=== PATIENT | male | born 1950 | race Hispanic/Latino ===

== ENCOUNTER → 2019-03-10 | Outpatient (CLI) | payer MEDICARE ==
[2019-03-10 14:33] LABS: BASOPHILS % (AUTO) 0.3 % (0.0-5.0); EOSINOPHILS % (AUTO) 4.4 % (0.0-8.0); HEMATOCRIT 39.9 % (42-54); LYMPHOCYTES % (AUTO) 44.5 % (21.0-51.0); MEAN CORPUSCULAR HEMOGLOBIN 32.8 pg (27.0-33.0); MEAN CORPUSCULAR HGB CONC 35.3 g/dL (32.0-36.0); MEAN CORPUSCULAR VOLUME 92.9 fL (79-99); MONOCYTES % (AUTO) 8.5 % (3.0-13.0); NEUTROPHILS % (AUTO) 42.3 % (40.0-77.0); NUCLEATED RED BLOOD CELLS 0.1 % (0.0-0.19); PLATELET COUNT (AUTO) 212 K/uL (130-400); RED BLOOD CELL COUNT(AUTO) 4.29 MIL/uL (4.50-6.20); RED CELL DISTRIBUTION WIDTH 12.9 % (11.0-15.5); WHITE BLOOD COUNT (AUTO) 7.7 K/uL (4.8-10.8)
[2019-03-10 14:46] LABS: CREATININE 1.1 mg/dL (0.5-1.5); POTASSIUM 4.7 mmol/L (3.5-5.1)
== END | disposition home or self-care (01) ==
LOC: LAB 12:50
PROVIDERS: ATTEND Urology
DX: R31.29 Other microscopic hematuria (principal)
CPT/HCPCS: 36415; 80048; 85025

== ENCOUNTER → 2019-03-19 | Outpatient (CLI) | payer MEDICARE ==
[~2019-03-19] MED LIST: IOHEXOL-350 75 ML VIAL IV ONE
== END | disposition home or self-care (01) ==
LOC: RAH 07:17
PROVIDERS: ATTEND Urology
DX: N21.0 Calculus in bladder (principal); N40.0 Benign prostatic hyperplasia without lower urinary tract symptoms
CPT/HCPCS: 74178; Q9967

== ENCOUNTER → 2019-04-08 | Outpatient (CLI) | payer MEDICARE | END | disposition home or self-care (01) | LOC: RAH 13:37 | PROVIDERS: ATTEND Orthopaedic Surgery | DX: M17.11 Unilateral primary osteoarthritis, right knee (principal); M25.461 Effusion, right knee | CPT/HCPCS: 73721 ==

== ENCOUNTER → 2019-05-05 | Outpatient (CLI) | payer MEDICARE | END | disposition home or self-care (01) | LOC: OIH 09:04 | PROVIDERS: ATTEND Internal Medicine | DX: M41.84 Other forms of scoliosis, thoracic region (principal); M51.34 Other intervertebral disc degeneration, thoracic region; M25.78 Osteophyte, vertebrae; M41.86 Other forms of scoliosis, lumbar region; M51.36 Other intervertebral disc degeneration, lumbar region; M50.30 Other cervical disc degeneration, unspecified cervical region | CPT/HCPCS: 72040; 72070; 72100 ==

== ENCOUNTER → 2021-05-17 | Outpatient (CLI) | payer OTHER, MEDICARE | END | disposition home or self-care (01) | LOC: RAH 12:33 | PROVIDERS: ATTEND Nurse Practitioner | DX: S83.207A Unspecified tear of unspecified meniscus, current injury, left knee, initial encounter (principal); M17.12 Unilateral primary osteoarthritis, left knee; X58.XXXA Exposure to other specified factors, initial encounter; Y93.89 Activity, other specified; Y92.89 Other specified places as the place of occurrence of the external cause; Y99.8 Other external cause status | CPT/HCPCS: 73721 ==

== ENCOUNTER 2021-08-24 07:41 | Day surgery (SDC) | payer OTHER, MEDICARE ==
[2021-08-22 10:11] LABS: CREATININE 1.2 mg/dL (0.5-1.5); POTASSIUM 4.3 mmol/L (3.5-5.1)
[2021-08-22 10:14] LABS: BASOPHILS % (AUTO) 0.5 % (0.0-5.0); EOSINOPHILS % (AUTO) 7.5 % (0.0-8.0); HEMATOCRIT 36.6 % (42-54); LYMPHOCYTES % (AUTO) 28.8 % (21.0-51.0); MEAN CORPUSCULAR HEMOGLOBIN 31.2 pg (27.0-33.0); MEAN CORPUSCULAR VOLUME 89.3 fL (79-99); MONOCYTES % (AUTO) 9.2 % (3.0-13.0); NEUTROPHILS % (AUTO) 53.5 % (40.0-77.0); PLATELET COUNT (AUTO) 248 K/uL (130-400); RED CELL DISTRIBUTION WIDTH 13.4 % (11.0-15.5); WHITE BLOOD COUNT (AUTO) 6.4 K/uL (4.8-10.8)
[2021-08-23 12:48] VITALS: BP 96/53
[~2021-08-24] VITALS: Ht 165.1 cm; Wt 83.5 kg
[2021-08-24] VITALS (16 sets, daily range): BP systolic 109–154; BP diastolic 60–78
[~2021-08-24 07:41] MED LIST changes: +CEFAZOLIN SODIUM 2 GM VIAL IV SCH; +DOXA8TAB81 PO; -IOHEXOL-350 75 ML VIAL IV ONE; +LISI40TA9 PO; +MIRA50TA PO; +SITA1TAB6 PO
[2021-08-24] MEDS ORDERED: 0.9%NACL 1000ML 1,000 ML IV ONE (08:48)
[2021-08-24] MEDS ORDERED: CEFAZOLIN SODIUM 1 GM VIAL ONE (08:48)
[2021-08-24] MEDS ORDERED: LIDOCAINE PF 100MG/5ML (2%) SYRINGE 5ML ONE (13:34)
[2021-08-24] MEDS ORDERED: ROCURONIUM 10MG/1ML SYR 10 MG/ML ML ONE (13:35)
[2021-08-24] MEDS ORDERED: ONDANSETRON 4MG INJ ONE (13:35)
[2021-08-24] MEDS ORDERED: MIDAZOLAM HCL 1 MG/ML 2ML VIAL ONE (13:35)
[2021-08-24] MEDS ORDERED: PROPOFOL 10 MG/ML 20ML VIAL IV ONE (13:35)
[2021-08-24] MEDS ORDERED: EPHEDRINE SULFATE 50 MG/ML AMPULE ONE (13:50)
[2021-08-24] MEDS ORDERED: FENTANYL CITRATE PF 50 MCG/1 ML 2ML VIAL ONE (13:53)
[2021-08-24] MEDS ORDERED: MEPERIDINE-PF 25 MG/ML SYG ONE (14:37)
[2021-08-24] MEDS ORDERED: KETOROLAC 30MG VIAL (30MG/ML) ONE (14:37)
[2021-08-24] MEDS ORDERED: ACET1TAB25 PO (14:47)
[2021-08-24] MEDS ORDERED: IBUP-2070 PO (14:47)
[2021-08-24] MEDS ORDERED: CEPH500B PO (14:47)
== END 2021-08-24 16:20 | disposition home or self-care (01) ==
LOC: DAH 07:41
PROVIDERS: ATTEND Orthopaedic Surgery
DX: M23.322 Other meniscus derangements, posterior horn of medial meniscus, left knee (principal); Z20.822 Contact with and (suspected) exposure to COVID-19; M22.42 Chondromalacia patellae, left knee; I10 Essential (primary) hypertension; E11.9 Type 2 diabetes mellitus without complications; Z79.899 Other long term (current) drug therapy; Z98.890 Other specified postprocedural states; Z82.49 Family history of ischemic heart disease and other diseases of the circulatory system; Z90.49 Acquired absence of other specified parts of digestive tract
CPT/HCPCS: 29881; 36415; 80048; 82948 ×2; 85025; 87635; 93005; A4215; A4221; A4222; A4223; A4649; A4663; A4930 ×2; A5120; A6223; C9803; J0690; J2001; J2175; J2250; J2405; J2704; J3010; J3490; J7030; J1885

== ENCOUNTER → 2023-01-21 | Outpatient (CLI) | payer OTHER, MEDICARE ==
[~2023-01-21] MED LIST changes: +ACET-2079 PO; -CEFAZOLIN SODIUM 2 GM VIAL IV SCH; +CEPH500B PO; +IBUP-2070 PO
[2023-01-21 11:05] LABS: CREATININE 1.4 mg/dL (0.5-1.5)
== END | disposition home or self-care (01) ==
LOC: LAB 09:30
PROVIDERS: ATTEND Family Medicine
DX: M48.061 Spinal stenosis, lumbar region without neurogenic claudication (principal)
CPT/HCPCS: 36415; 82565; 84520

== ENCOUNTER → 2023-01-24 | Outpatient (CLI) | payer OTHER, MEDICARE ==
[~2023-01-24] MED LIST changes: +GADOTERATE MEGLUMINE 5 MMOL/10 ML VIAL IV ONE
== END | disposition home or self-care (01) ==
LOC: RAH 08:06
PROVIDERS: ATTEND Family Medicine
DX: M47.816 Spondylosis without myelopathy or radiculopathy, lumbar region (principal); M48.061 Spinal stenosis, lumbar region without neurogenic claudication
CPT/HCPCS: 72158; A9575

== ENCOUNTER → 2023-05-17 | Outpatient (CLI) | payer OTHER, MEDICARE ==
[~2023-05-17] MED LIST changes: -GADOTERATE MEGLUMINE 5 MMOL/10 ML VIAL IV ONE
== END | disposition home or self-care (01) ==
LOC: RAH 10:00
PROVIDERS: ATTEND Student in an Organized Health Care Education/Training Program
DX: M19.011 Primary osteoarthritis, right shoulder (principal); M25.411 Effusion, right shoulder; M75.21 Bicipital tendinitis, right shoulder
CPT/HCPCS: 73221

== ENCOUNTER 2023-07-05 06:46 | Day surgery (SDC) | payer OTHER, MEDICARE ==
[2023-07-02 10:29] LABS: BASOPHILS # (AUTO) 0.03 K/uL (0.00-0.20); BASOPHILS % (AUTO) 0.5 % (0.0-5.0); EOSINOPHILS # (AUTO) 0.41 K/uL (0.00-0.70); EOSINOPHILS % (AUTO) 6.5 % (0.0-8.0); HEMATOCRIT 39.3 % (42-54); IMMATURE GRANULOCYTE ABSOLUTE 0.03 K/uL (0-1); LYMPHOCYTES # (AUTO) 1.9 K/uL (1.0-4.8); LYMPHOCYTES % (AUTO) 30.2 % (21.0-51.0); MEAN CORPUSCULAR HEMOGLOBIN 30.6 pg (27.0-33.0); MEAN CORPUSCULAR HGB CONC 34.1 g/dL (32.0-36.0); MEAN CORPUSCULAR VOLUME 89.7 fL (79-99); MONOCYTES # (AUTO) 0.5 K/uL (0.1-1.0); MONOCYTES % (AUTO) 8.3 % (3.0-13.0); NEUTROPHILS # (AUTO) 3.4 K/uL (1.8-7.7); PLATELET COUNT (AUTO) 250 K/uL (130-400); RED BLOOD CELL COUNT(AUTO) 4.38 MIL/uL (4.50-6.20); RED CELL DISTRIBUTION WIDTH 11.9 % (11.0-15.5); WHITE BLOOD COUNT (AUTO) 6.4 K/uL (4.8-10.8)
[2023-07-02 10:41] LABS: ALBUMIN 3.6 g/dL (3.5-5.0); CREATININE 1.4 mg/dL (0.5-1.5); POTASSIUM 3.8 mmol/L (3.5-5.1)
[2023-07-02 10:43] VITALS: BP 140/63; PULSE 60; RESP 20
[2023-07-02 10:43] LABS: INR 0.94 (0.85-1.15)
[2023-07-02 10:44] LABS: PARTIAL THROMBOPLASTIN TIME 30.9 SEC (26.3-35.5)
[~2023-07-05] VITALS: Ht 167.6 cm; Wt 83.0 kg
[2023-07-05] VITALS (22 sets, daily range): BP systolic 134–168; BP diastolic 65–89; PULSE 59–89; RESP 14–20
[~2023-07-05 06:46] MED LIST changes: -ACET-2079 PO; -CEPH500B PO; +GALA8TAB10 PO; -IBUP-2070 PO; +ICY HOT TP; +OXYB5TAB20 PO; +ROSU5TAB12 PO; +tylenol arthritis PO
[2023-07-05] MEDS ORDERED: 0.9%NACL 1000ML 1,000 ML IV ONE (07:06)
[2023-07-05] MEDS: CEFAZOLIN SODIUM 2 GM VIAL ONE ×2 (07:48→09:11)
[2023-07-05] MEDS ORDERED: EPINEPHRINE PF 1MG (1:1,000) 1 MG/ML AMP ONE (07:52)
[2023-07-05] MEDS ORDERED: LIDOCAINE PF 100MG/5ML (2%) SYRINGE 5ML ONE (08:04)
[2023-07-05] MEDS ORDERED: FENTANYL CITRATE PF 50 MCG/1 ML 2ML VIAL ONE ×3 (08:04→11:34)
[2023-07-05] MEDS ORDERED: ROCURONIUM 10MG/1ML SYR 10 MG/ML ML ONE ×2 (08:05→09:32)
[2023-07-05] MEDS ORDERED: GLYCOPYRROLATE 1 MG/5 ML SYRINGE ONE (08:05)
[2023-07-05] MEDS ORDERED: PROPOFOL 10 MG/ML 20ML VIAL IV ONE ×2 (08:05→10:43)
[2023-07-05] MEDS ORDERED: HYDROMORPHONE 1 MG INJ ONE (08:07)
[2023-07-05] MEDS ORDERED: FAMOTIDINE 20MG VIAL IV ONE (08:07)
[2023-07-05] MEDS ORDERED: EPHEDRINE SULFATE 50 MG/ML AMPULE ONE (08:34)
[2023-07-05] MEDS ORDERED: ONDANSETRON 4MG INJ ONE (09:42)
[2023-07-05] MEDS ORDERED: BUPIVACAINE/PF 0.25% 30ML VIAL IJ ONE (10:39)
[2023-07-05] MEDS ORDERED: NEOSTIGMINE 5MG/5ML SYR IV ONE (10:42)
[2023-07-05] MEDS ORDERED: HYDRALAZINE 20MG/ML VIAL ONE ×2 (11:07→11:49)
[2023-07-05] MEDS ORDERED: ACETAMINOPHEN 500 MG TABLET ONE (13:26)
[2023-07-05] MEDS ORDERED: ACET-2079 PO (15:02)
== END 2023-07-05 14:00 | disposition home or self-care (01) ==
LOC: DAH 06:46
PROVIDERS: ATTEND Student in an Organized Health Care Education/Training Program
DX: M19.011 Primary osteoarthritis, right shoulder (principal); M75.41 Impingement syndrome of right shoulder; M77.8 Other enthesopathies, not elsewhere classified; M75.51 Bursitis of right shoulder; I10 Essential (primary) hypertension; E11.9 Type 2 diabetes mellitus without complications; Z79.01 Long term (current) use of anticoagulants; Z79.899 Other long term (current) drug therapy; Z98.890 Other specified postprocedural states; Z82.49 Family history of ischemic heart disease and other diseases of the circulatory system
CPT/HCPCS: 82040; 80048; 85025; 85610; 85730; 36415; 29823; 29826; 29824; 82948 ×2; A4663; J7030 ×2; A4565; A4452; J3490 ×3; J3010 ×3; J1170; J2710; J0665; J2001; J0171; J0360 ×2; J2704 ×2; J2405; J0690; A6223; A4649; A4215; A4223; A4222; A4221; A4600

== ENCOUNTER → 2024-01-03 | Outpatient (CLI) | payer OTHER, MEDICARE ==
[~2024-01-03] MED LIST changes: +ACET-2079 PO; -ICY HOT TP; -ROSU5TAB12 PO; +ROSU5TAB43 PO; -tylenol arthritis PO
== END | disposition home or self-care (01) ==
LOC: RAH 12:56
PROVIDERS: ATTEND Family Medicine
DX: I70.201 Unspecified atherosclerosis of native arteries of extremities, right leg (principal); E11.51 Type 2 diabetes mellitus with diabetic peripheral angiopathy without gangrene
CPT/HCPCS: 93925

== ENCOUNTER → 2024-07-30 | Outpatient (CLI) | payer OTHER, MEDICARE ==
[~2024-07-30] MED LIST changes: -ROSU5TAB43 PO; +ROSU5TAB51 PO
--- NOTE | 2024-07-30 15:21 | HMCIMG ---
EXAM: LUMBAR SPINE 2-3VWS REASON: Spinal stenosis, lumbar region with neurogenic claudication. COMPARISON: None. TECHNIQUE: 3 views of the lumbar spine were obtained. FINDINGS: There is normal appearance of the lumbar vertebral bodies. Disc interspace heights are preserved. Alignment is normal. There are no visible fractures. Soft tissues appear unremarkable. There are moderate degenerative changes in the posterior facets. IMPRESSION: 1. Facet degenerative changes. 2. Normal-appearing vertebral bodies and disc interspaces.
== END | disposition home or self-care (01) ==
LOC: RAH 13:25
PROVIDERS: ATTEND Anesthesiology
DX: M47.816 Spondylosis without myelopathy or radiculopathy, lumbar region (principal); M48.062 Spinal stenosis, lumbar region with neurogenic claudication
CPT/HCPCS: 72100

== ENCOUNTER 2024-10-21 22:22 | Emergency (ER) | payer OTHER, MEDICARE ==
[~2024-10-21] VITALS: Ht 154.9 cm; Wt 81.6 kg
[2024-10-21 22:24] VITALS: BP 163/72; PULSE 79; RESP 18; TEMP 98.5
[2024-10-21 22:43] LABS: APPEARANCE,URINE CLEAR (CLEAR); BILIRUBIN,URINE NEGATIVE (NEGATIVE); COLOR,URINE COLORLESS (YELLOW); GLUCOSE, URINE (UA) NEGATIVE (NEGATIVE); KETONES,URINE NEGATIVE (NEGATIVE); LEUKOCYTE ESTERASE ,URINE 500 Leu/uL (NEGATIVE); NITRATE,URINE NEGATIVE (NEGATIVE); OCCULT BLOOD,URINE LARGE (NEGATIVE); PH,URINE 5.5 (5.0-8.0); PROTEIN,URINE 20 mg/dL (NEGATIVE); UROBILINOGEN,URINE 0.2 mg/dL (0.2-1.0)
[2024-10-21 22:44] LABS: ADD UA MICROSCOPIC YES
[2024-10-21 22:46] LABS: BACTERIA,URINE RARE /HPF (None Seen); MUCUS,URINE RARE LPF (None Seen); SQUAMOUS EPITHELIAL CELL,UR RARE /HPF (0-2); WBC,URINE 51-100 /HPF (0-1)
--- NOTE | 2024-10-21 23:29 | ERN ---
General Chief Complaint: Painful Urination Stated Complaint: C/O PAIN WHEN VOIDING W/FREQUENT URINATION Time Seen by MD: 22:25 History of Present Illness Initial Comments 74-year-old male with painful urination since yesterday. States that he does have prostate problems. No fevers no chills. Past medical history includes diabetes hypertension high cholesterol. Review of systems is otherwise nega tive. Allergies: Coded Allergies: No Known Drug Allergies (Verified Allergy, Unknown, 08/22/21) Home Meds Active Scripts Acetaminophen with Codeine (Acetaminophen-Cod #3 Tablet) 300 Mg-30 Mg Tablet, 1 EACH PO Q4HPRN PRN for PAIN for 7 Days, #42 TAB 0 Refills Prov:MISAEL BISHOP MD 07/05/23 Reported Medications Rosuvastatin Calcium (Rosuvastatin Calcium) 5 Mg Tablet, 5 MG PO AM, TAB 07/02/23 Galantamine HBr (Galantamine HBr) 8 Mg Tablet, 8 MG PO HS, TAB 07/02/23 Oxybutynin Chloride (Oxybutynin Chloride) 5 Mg Tablet, 5 MG PO AM, TAB 07/02/23 Mirabegron (Myrbetriq) 50 Mg Tab.er.24h, 50 MG PO HS, TAB 08/23/21 Doxazosin Mesylate (Doxazosin Mesylate) 8 Mg Tablet, 8 MG PO HS, TAB 08/23/21 Lisinopril (Lisinopril) 40 Mg Tablet, 40 MG PO DAILY, TAB 08/23/21 Sitagliptin Phos/Metformin HCl (Janumet 50-1,000 mg Tablet) 1 Each Tablet, 1 EACH PO BID, TAB 08/23/21 Past Medical History Past Medical History: Arthritis, Diabetes-Type II, High Cholesterol, Hypertension Past Surgical History: Unknown ROS Dictation Review of systems was negative he said he had no mental status changes no dizziness no lightheadedness no fevers no chills no shortness of breath no chest pain no GI problems no nausea vomiting diarrhea eating and drinking okay no peripheral nerve systems musculoskeletal moves all extremities and there pain- free. No change in vision Physical Exam General Appearance: (+) no apparent distress Orientation: (+) oriented x 3 Eye: bilateral eye normal inspection, bilateral eye PERRL, bilateral eye EOMI Ear, Nose, Throat: (+) hearing grossly normal, (+) normal ENT inspection, (+) moist mucous membraine Neck: (+) normal inspection, (+) supple, (+) full range of motion, (+) no JVD Respiratory: (+) chest non-tender, (+) lungs clear, (+) well ventilated Heart: (+) regular, (+) no gallop Vascular: (+) no edema, (+) normal peripheral pulse, (+) no JVD Gastrointestinal: (+) soft, (+) non-tender, (+) no organomegaly Results Laboratory and Microbiology Lab and Micro Result Laboratory Tests Test 10/21/24 22:34 10/21/24 23:47 Urine Color COLORLESS (YELLOW) Urine Appearance CLEAR (CLEAR) Urine pH 5.5 (5.0-8.0) Urine Specific [place] 1.003 (1.001-1.031) Urine Protein 20 mg/dL (NEGATIVE) H Urine Glucose (UA) NEGATIVE mg/dL (NEGATIVE) Urine Ketones NEGATIVE mg/dL (NEGATIVE) Urine Occult Blood LARGE (NEGATIVE) H Urine Nitrate NEGATIVE (NEGATIVE) Urine Bilirubin NEGATIVE mg/dL (NEGATIVE) Urine Urobilinogen 0.2 mg/dL (0.2-1.0) Urine Leukocyte Esterase 500 Nuno/uL (NEGATIVE) H Urine RBC 2-5 /HPF (0-1) H Urine WBC 51-100 /HPF (0-1) H Urine Squamous Epithelial Cells RARE /HPF (0-2) Urine Bacteria RARE /HPF (None Seen) White Blood Count 11.1 K/uL (4.8-10.8) H Red Blood Count 3.99 MIL/uL (4.50-6.20) L Hemoglobin 12.5 g/dL (14.0-18.0) L Hematocrit 34.9 % (42-54) L Mean Corpuscular Volume 87.5 fL (79-99) Mean Corpuscular Hemoglobin 31.3 pg (27.0-33.0) Mean Corpuscular Hemoglobin Concent 35.8 g/dL (32.0-36.0) Red Cell Distribution Width 11.9 % (11.0-15.5) Platelet Count 229 K/uL (130-400) Mean Platelet Volume 9.8 fL (7.5-10.5) Immature Granulocyte % (Auto) 0.3 % (0-1) Neutrophils (%) (Auto) 55.7 % (40.0-77.0) Lymphocytes (%) (Auto) 25.7 % (21.0-51.0) Monocytes (%) (Auto) 11.5 % (3.0-13.0) Eosinophils (%) (Auto) 6.5 % (0.0-8.0) Basophils (%) (Auto) 0.3 % (0.0-5.0) Neutrophils # (Auto) 6.2 K/uL (1.8-7.7) Lymphocytes # (Auto) 2.9 K/uL (1.0-4.8) Monocytes # (Auto) 1.3 K/uL (0.1-1.0) H Eosinophils # (Auto) 0.72 K/uL (0.00-0.70) H Basophils # (Auto) 0.03 K/uL (0.00-0.20) Absolute Immature Granulocyte (auto 0.03 K/uL (0-1) Nucleated Red Blood Cells 0.0 % (0.0-0.19) MDM Patient chief complaint and description of his symptoms coupled with his past medical history of prostate disease is consistent with a urinary tract infection, although since prostatitis might also be possible. I will start with a urine analysis a urine culture and a CBC. Patient's labs have come back: He has a slightly elevated white blood cell count. His urinalysis shows large amounts of blood as well as esterase activity no nitrite activity not very much bacteria. These results are consistent with a prostatitis and I will treat him with a 3rd generation cephalosporin for approximately one month. ED Course Orders Procedure Category Date Status Time Urinalysis Profile LAB 10/21/24 Complete 22:29 Culture Urine KONRAD 10/21/24 In Process 22:44 Urinalysis Profile LAB 10/21/24 Logged 23:29 Cbc With Differential LAB 10/21/24 Complete 23:29 Vital Signs Date Time Temp Pulse Resp B/P (MAP) Pulse Ox O2 Delivery O2 Flow Rate FiO2 10/21/24 22:24 98.4 79 18 163/72 99 Room Air DX & DISP Disposition: Discharge Departure Impression: Primary Impression: Prostatitis Additional Impression: BPH (benign prostatic hyperplasia) Condition: Stable Scripts Cefdinir (Cefdinir) 300 Mg Capsule 1 CAP PO BID for prostatitis for 10 Days, #60 CAP 0 Refills Prov: BRANDY BA MD 10/22/24 Referrals: JULI DAWKINS MD (PCP) BRANDY BA MD Oct 21, 2024 23:29
[2024-10-21 23:58] LABS: BASOPHILS # (AUTO) 0.03 K/uL (0.00-0.20); BASOPHILS % (AUTO) 0.3 % (0.0-5.0); EOSINOPHILS # (AUTO) 0.72 K/uL (0.00-0.70); EOSINOPHILS % (AUTO) 6.5 % (0.0-8.0); HEMATOCRIT 34.9 % (42-54); IMMATURE GRANULOCYTE ABSOLUTE 0.03 K/uL (0-1); LYMPHOCYTES # (AUTO) 2.9 K/uL (1.0-4.8); LYMPHOCYTES % (AUTO) 25.7 % (21.0-51.0); MEAN CORPUSCULAR HEMOGLOBIN 31.3 pg (27.0-33.0); MEAN CORPUSCULAR HGB CONC 35.8 g/dL (32.0-36.0); MEAN CORPUSCULAR VOLUME 87.5 fL (79-99); MONOCYTES # (AUTO) 1.3 K/uL (0.1-1.0); MONOCYTES % (AUTO) 11.5 % (3.0-13.0); NEUTROPHILS # (AUTO) 6.2 K/uL (1.8-7.7); NEUTROPHILS % (AUTO) 55.7 % (40.0-77.0); PLATELET COUNT (AUTO) 229 K/uL (130-400); RED BLOOD CELL COUNT(AUTO) 3.99 MIL/uL (4.50-6.20); RED CELL DISTRIBUTION WIDTH 11.9 % (11.0-15.5); WHITE BLOOD COUNT (AUTO) 11.1 K/uL (4.8-10.8)
[2024-10-22] MEDS ORDERED: CEFD300C3 PO (00:15)
== END 2024-10-22 00:27 | disposition home or self-care (01) ==
LOC: EDH 22:22
DX: N41.9 Inflammatory disease of prostate, unspecified (principal); N40.1 Benign prostatic hyperplasia with lower urinary tract symptoms; E11.9 Type 2 diabetes mellitus without complications; E78.00 Pure hypercholesterolemia, unspecified; I10 Essential (primary) hypertension; M19.90 Unspecified osteoarthritis, unspecified site; Z79.84 Long term (current) use of oral hypoglycemic drugs; Z79.899 Other long term (current) drug therapy
CPT/HCPCS: 36415; 81001; 85025; 87086; 99283

== ENCOUNTER → 2024-11-20 | Outpatient (CLI) | payer OTHER, MEDICARE ==
[~2024-11-20] MED LIST changes: +CEFD300C3 PO
== END | disposition home or self-care (01) ==
LOC: SHCH 08:20
PROVIDERS: ATTEND Internal Medicine Cardiovascular Disease
DX: I70.203 Unspecified atherosclerosis of native arteries of extremities, bilateral legs (principal); I87.1 Compression of vein; I87.2 Venous insufficiency (chronic) (peripheral)
CPT/HCPCS: 93925; 93970

== ENCOUNTER → 2024-12-01 | Outpatient (CLI) | payer OTHER, MEDICARE ==
[2024-12-01] MEDS: REGADENOSON 0.4 MG/5 ML PF SYG IVP ONE (10:27)
== END | disposition home or self-care (01) ==
LOC: SHCH 08:17
PROVIDERS: ATTEND Internal Medicine Cardiovascular Disease
DX: I20.0 Unstable angina (principal); R06.00 Dyspnea, unspecified
CPT/HCPCS: 78452; 93017; J2785; A9500 ×2

== ENCOUNTER 2025-05-31 08:37 | Emergency (ER) | payer OTHER, MEDICAID ==
[~2025-05-31] VITALS: Ht 154.9 cm; Wt 78.5 kg
[~2025-05-31 08:37] MED LIST changes: +LISI40TA15 PO; -LISI40TA9 PO
[2025-05-31] MEDS ORDERED: 0.9% NACL 500ML IV.SOLN 500 ML IV ONE (09:00)
--- NOTE | 2025-05-31 11:08 | HMCIMG ---
EXAM: CT Cervical Spine Without IV contrast. CLINICAL HISTORY: neck pain TECHNIQUE: Axial computed tomography images of the cervical spine without intravenous contrast. Sagittal and coronal reformatted images were generated. COMPARISON: None provided. FINDINGS: ALIGNMENT: Bony alignment is anatomic. No evidence of subluxation or acute malalignment. Postoperative fusion noted at C4???C5 with metallic screws and fixation plate in situ; hardware is intact and well-positioned without periprosthetic lucency. VERTEBRAL BODIES: Vertebral body heights are maintained except at the fused levels. No acute fracture or destructive osseous lesion identified. Moderate to severe degenerative changes are seen involving the left atlanto-axial articulation. INTERVERTEBRAL DISCS: Reduced disc heights are noted at C5???C6 and C6???C7 levels with associated disc???osteophyte complexes indenting the anterior epidural fat, consistent with degenerative spondylosis. FACET JOINTS AND UNCOVERTEBRAL JOINTS: Multilevel uncovertebral and facet joint arthropathy seen, most prominent at the lower cervical levels (C4???C7). Mild narrowing of the neural foramina is present at these levels, without high-grade canal compromise. SOFT TISSUES: Prevertebral and paravertebral soft tissues are within normal limits. No prevertebral hematoma, soft tissue swelling, or abnormal calcification noted. IMPRESSION: Postoperative fusion at C4???C5 with intact hardware and good alignment. Moderate to severe degenerative changes at the left atlanto-axial articulation. Multilevel degenerative spondylosis with reduced disc heights at C5???C6 and C6???C7, and associated disc???osteophyte complexes indenting the anterior epidural fat. No acute fracture or destructive lesion. Recommend evaluation with MRI cervical spine if symptoms persist/worsen. /[place]
[2025-05-31] MEDS ORDERED: PRED20TA3 PO (11:56)
[2025-05-31] MEDS ORDERED: NAPR-1196 PO (11:56)
--- NOTE | 2025-05-31 11:56 | ERN ---
ED Note History of Present Illness Stated Complaint: CHRONIC LEFT NECK PAIN Chief Complaint: Neck Pain Time Seen by MD: 08:43 Dictation: 75-year-old male presenting to the emergency department for chronic left-sided neck pain, worse with movement or touch, has been seen primary care doctor but reports that he has not gotten any relief. This has been going on for years and worse over the past months. No weakness or numbness noted Allergies: Coded Allergies: No Known Drug Allergies (Verified Allergy, Unknown, 08/22/21) Home Meds Active Scripts Cefdinir (Cefdinir) 300 Mg Capsule, 1 CAP PO BID for prostatitis for 10 Days, #60 CAP 0 Refills Prov:BRANDY BA MD 10/22/24 Acetaminophen with Codeine (Acetaminophen-Cod #3 Tablet) 300 Mg-30 Mg Tablet, 1 EACH PO Q4HPRN PRN for PAIN for 7 Days, #42 TAB 0 Refills Prov:MISAEL BISHOP MD 07/05/23 Reported Medications Rosuvastatin Calcium (Rosuvastatin Calcium) 5 Mg Tablet, 5 MG PO AM, TAB 07/02/23 Galantamine HBr (Galantamine HBr) 8 Mg Tablet, 8 MG PO HS, TAB 07/02/23 Oxybutynin Chloride (Oxybutynin Chloride) 5 Mg Tablet, 5 MG PO AM, TAB 07/02/23 Mirabegron (Myrbetriq) 50 Mg Tab.er.24h, 50 MG PO HS, TAB 08/23/21 Doxazosin Mesylate (Doxazosin Mesylate) 8 Mg Tablet, 8 MG PO HS, TAB 08/23/21 Lisinopril (Lisinopril) 40 Mg Tablet, 40 MG PO DAILY, TAB 08/23/21 Sitagliptin Phos/Metformin HCl (Janumet 50-1,000 mg Tablet) 1 Each Tablet, 1 EACH PO BID, TAB 08/23/21 Past Medical History Past Medical History: Arthritis, Diabetes-Type II, High Cholesterol, Hypertension Additional Past Medical Hx: CHRONIC NECK PAIN Surgical History: Unknown Review of System Dictation Constitutional: Negative for fever,chills, and weight loss Eyes: Negative for injury, pain,redness, and discharge ENT: Negative for injury,pain or swelling Cardiovascular: Negative for chest pain, palpitations, and edema Respiratory: Negative for shortness of breath, cough, and wheezing, Abdomen/GI: Negative for abdominal pain, nausea, vomiting, diarrhea, and constipation Back: Negative for injury and pain : Negative for injury, bleeding and discharge MS/Extremity: Negative for injury and deformity Skin: Negative for rash, and discoloration Neuro: Per HPI Initial Vital Sign VS Vital Signs Date Time Temp Pulse Resp B/P (MAP) Pulse Ox O2 Delivery O2 Flow Rate FiO2 05/31/25 08:39 98.2 105 16 120/52 98 Room Air 0 Physical Exam Dictation General: awake, alert, NAD Head/Face: Normocephalic, atraumatic Eyes: PERRL, EOMI, vision at baseline ENT: oral cavity clear, TMs clear, no signs of infection Neck: Trachea midline, supple, no nuchal rigidity Cardiovascular: RRR, normal S1/S2, No MRGs, no JVD Respiratory: CTAB, no respiratory distress, No rales or wheezes Abdomen: Soft, non-tender, non-distended, normal bowel sounds, no guarding or rebound. Skin: Warm, dry, normal turgor, no rash MS/Extremity: Pulses equal, no cyanosis, neurovascular intact, FROM Neuro: COAx4, GCS 15, strength 5/5, CN 2-12 intact, normal cerebellar exam, normal gait, Psych: Normal behavior, mood, and affect normal Results (Laboratory/Radiology) Labs Reviewed?: Yes ED Course ED Course Orders Procedure Category Date Status Time Ipratropium/Albuterol PHA 05/31/25 Complete Neb (Duoneb) 08:58 0.9% Nacl 500ml PHA 05/31/25 Complete Iv.Soln (Ns 500ml 09:00 Dexamethasone 10mg/Ml PHA 05/31/25 Complete 1ml Vial (Dexameth 08:58 Ct Cervical Spine W/O CT 05/31/25 Resulted Contrast 09:30 Diazepam 5 Mg/Ml 2 Ml PHA 05/31/25 Complete Syg (Valium 5 Mg/M 09:30 Ketorolac PHA 05/31/25 Complete Tromethamine 15mg/Ml 09:30 Current Medications Medications (Trade) Dose Ordered Sig/Andria Route PRN Reason Start Time Stop Time Status Last Admin Dose Admin Albuterol (DUOneb) 1 udvial ONCE STAT IH 05/31/25 08:58 05/31/25 09:30 DC Dexamethasone Sodium Phosphate (dexaMETHasone 10MG/ML 1ML VIAL) 10 mg ONCE STAT IV 05/31/25 08:58 05/31/25 09:30 DC Diazepam (VALium 5 MG/ML 2 ML SYG) 5 mg ONCE STAT IM 05/31/25 09:30 05/31/25 09:34 DC Ketorolac Tromethamine (toRADol) 15 mg ONCE STAT IM 05/31/25 09:30 05/31/25 09:34 DC Sodium Chloride 500 ml @ 0 mls/hr ONCE ONCE IV 05/31/25 09:00 05/31/25 09:30 DC Vital Signs Date Time Temp Pulse Resp B/P (MAP) Pulse Ox O2 Delivery O2 Flow Rate FiO2 05/31/25 08:39 98.2 105 16 120/52 98 Room Air 0 Medical Decision Making MDM MDM: Differential diagnosis: Rationale: Tests considered and ordered secondary to shared decision making include: Previous outside records reviewed: Old ER visits. Risk of complication and/or morbidity or mortality of patient management: None Medications-Per medication reconciliation Need for hospitalization: Patient does not meet criteria for hospitalization. Need for emergency major/minor surgery: No There are no social concerns with this patient. Prescription drug management Prescriptions will include symptomatic care Patient's prior external medical records from other ER visits were reviewed by me as indicated. Prior testing and results from previous visits were reviewed. Prior tests were taken into account with medical decision making and resource utilization, independent historian/historians were used to obtain complete medical history. I independently interpreted the test that were performed, results were reviewed by me and considered findings on radiology if ordered. Medical management and examination interpretation discussions were had by me with other qualified healthcare professionals as indicated for the patient's care. 75-year-old male with neck pain, chronic pain and neuropathy, status post fusion, CT scan stable for any fractures or lytic lesions prescriptions given pain controlled stable for discharge DX & DISP Disposition: Discharge Departure Impression: Primary Impression: Chronic cervical radiculopathy Additional Impression: Chronic radicular cervical pain Condition: Stable Scripts Prednisone (Prednisone) 20 Mg Tablet 20 MG PO DAILY for 5 Days, #5 TAB Prov: SERGEY VALLE MD 05/31/25 Naproxen (Naproxen) 250 Mg Tablet 250 MG PO BID for 5 Days, #10 TAB Prov: SERGEY VALLE MD 05/31/25 Referrals: JUAN CARLOS ISABEL MD (PCP) SERGEY VALLE MD May 31, 2025 11:56
--- NOTE | 2025-05-31 13:48 | NUR ---
ASSUMED CARE AT THIS TIME.
[2025-05-31 14:18] VITALS: BP 136/77; PULSE 63; RESP 16; TEMP 97.7; O2SAT 99
== END 2025-05-31 14:21 | disposition home or self-care (01) ==
LOC: EDH 08:37
DX: G89.29 Other chronic pain (principal); M47.22 Other spondylosis with radiculopathy, cervical region; E11.9 Type 2 diabetes mellitus without complications; E78.00 Pure hypercholesterolemia, unspecified; I10 Essential (primary) hypertension; Z79.84 Long term (current) use of oral hypoglycemic drugs; Z79.899 Other long term (current) drug therapy
CPT/HCPCS: 99285; 72125; 96372 ×2; J1885; J3360

== ENCOUNTER → 2025-06-01 | Outpatient (CLI) | payer OTHER, MEDICAID ==
[~2025-06-01] MED LIST changes: +NAPR-1196 PO; +PRED20TA3 PO
--- NOTE | 2025-06-03 22:23 | HMCIMG ---
EXAM: MR Cervical Spine Without IV contrast. CLINICAL HISTORY: M47.812 Spondylosis without myelopathy or radiculopathy, cervical region. TECHNIQUE: Magnetic resonance images of the cervical spine without intravenous contrast in multiple planes. CONTRAST: None. COMPARISON: None provided. FINDINGS: ALIGNMENT: Normal cervical alignment is largely maintained. There is loss of intervertebral disc height and signal intensity at multiple levels (degenerative desiccation), notably at C4???C5, C5???C6, and C6???C7, consistent with age-related spondylosis. Mild posterior osteophyte complexes are seen at these levels. VERTEBRAE: No masses are seen. SPINAL CORD/BRAIN: No abnormality is seen in the cord. No abnormality is seen in the visualized portions of the brain. FINDINGS BY LEVEL: C2-C3: The disc space height is maintained. There is adequate disc hydration. There is no bulge or herniation. No neural foraminal stenosis is seen. No spinal canal stenosis is seen. Facets are normal. C3-C4: The disc space height is maintained. There is adequate disc hydration. There is no bulge or herniation. No neural foraminal stenosis is seen. No spinal canal stenosis is seen. Facets are normal. C4-C5: There are Modic endplate changes at C4-C5. A posterior disc???osteophyte complex is evident, indenting the thecal sac and causing [id number] canal stenosis. Indentation on the ventral aspect of the spinal cord is seen; the cord appears mildly indented but without definite intramedullary T2 hyperintensity ??? hence, no clear evidence of myelomalacia. C5-C6: Posterior disc???osteophyte complex causing moderate spinal canal narrowing and ventral cord impression. Bilateral uncovertebral osteophytes leading to moderate foraminal narrowing C6-C7: Mild posterior osteophyte complex without significant cord compression. Foraminal narrowing is more on the left side due to facet and uncovertebral hypertrophy. C7-T1: The disc space height is maintained. There is adequate disc hydration. There is no bulge or herniation. No neural foraminal stenosis is seen. No spinal canal stenosis is seen. Facets are normal. Mild facet joint arthropathy at multiple levels. PARASPINAL SOFT TISSUES: No soft tissue abnormality is noted. IMPRESSION: Multilevel age-related cervical spondylosis with: Prominent posterior disc???osteophyte complexes at C4???C5 and C5???C6 levels. Resultant [id number] spinal canal stenosis and bilateral neural foraminal narrowing (R greater johansen L at C4???C5, bilateral at C5???C6). Features are consistent with degenerative cervical spondylotic changes without MRI evidence of acute myelopathy. /[place]
== END | disposition home or self-care (01) ==
LOC: RAH 09:11
PROVIDERS: ATTEND Family Medicine
DX: M47.813 Spondylosis without myelopathy or radiculopathy, cervicothoracic region (principal); M48.02 Spinal stenosis, cervical region; M25.78 Osteophyte, vertebrae
CPT/HCPCS: 72141